=== PATIENT | female | born 1975 | race Caucasian/White ===

== ENCOUNTER 2025-01-18 | Day surgery (SDC) | payer OTHER, SELFPAY ==
--- NOTE | 2025-01-11 10:45 | PC.NURSE ---
Report to the Outpatient Waiting Room, entrance under the green pavilion located off [facility], at time __9:00 AM on date ___[id number]____. Planned Procedure Time: __11:00AM .? Time changes happen often and if your time is changed the preop area will call you the afternoon before. - You and your visitor will be asked to self-screen and do not enter if you have any COVID symptoms. Please call surgeon if you need to reschedule. - A mask is optional within the hospital at this time. Patients may have clear liquids (water, carbonated beverages, clear teas, apple juice) until 3 hours prior to surgery with a maximum of 20 ounces. - No food from midnight until time of surgery and no smoking, or chewing tobacco (or any form of nicotine). No chewing gum, candy or mints. - Take only the following medications with a SIP of water on the morning of surgery: EFFEXOR DO NOT STOP ANY OF YOUR OTHER PRESCRIPTION MEDICATIONS PRIOR TO SURGERY EXCEPT THE FOLLOWING N/A Hold all vitamins and supplements for 3 days per anesthesiologist. N/A Please no make-up, nail faroese, hairspray, perfume, deodorant, or body powder the day of surgery.? No jewelry (including any body piercings) or valuables the day of surgery, leave them at home.? Please take a shower or bath the night before, or the morning of, surgery with an antibacterial soap.? Wear comfortable, loose fitting clothing.? - Jewelry must be removed prior to entering the operating room.? Rings and piercings that are not removed may be cut off. - The hospital will not accept responsibility for valuables.? - Please leave all valuables, including medications, at home the day of surgery. If you are going home after surgery, a licensed delivery driver/supervisor must drive you home.? - NO public transportation without another adult if you receive anesthesia. - We recommend that an adult stay with you for 24 hours following discharge. - We also recommend that you do not drive, make important decision, drink alcoholic beverages, or take any drugs that were not prescribed by your health care provider for at least 24 hours after your discharge time. Follow any additional instructions given to you from your surgeon. Telephone instructions given to ___JIDEV (PATIENT) and asked if any additional questions and then verbalized understanding. Patient advised to call surgeon office or pre surgery nurse liaison [phone] if any additional questions.
[2025-01-11 10:50] VITALS: BMI 37.7
[2025-01-18] VITALS (7 sets, daily range): BP systolic 104–147; BP diastolic 60–90; PULSE 68–71; RESP 16–20; TEMP 36.3–36.7; O2SAT 92–97
--- OUTSIDE RECORDS SUMMARY | 2025-01-18 00:02 | XMS_ITS | Encounter Summary ---
Author Organization [facility] Address [address] [place] [address] Care Team Providers Care Commercial Horticulture Instructor Name Role Phone Juancarlos Bell MD Primary Care Provider [phone] Encounter Details Date Type Department Care Team (Latest Contact Info) Description 09/30/2005 [facility]patient [facility] Shanna Florez MD [address] [place] [phone] ABNL FINDINGS ON SCREEN (Primary Dx) Social History Tobacco Use Types Packs/Day Years Used Date Smoking Tobacco: Never Assessed Comments Unknown Sex and Gender Information Value Date Recorded Sex Assigned at Not on file Legal Sex Female 5:15 AM FAMILY MEDICINE CHAIR Gender Identity Not on file Sexual Orientation Not on file documented as of this encounter Plan of Treatment Not on file documented as of this encounter Visit Diagnoses Diagnosis Abnormal findings on screening- Primary documented in this encounter Care Teams Commercial Horticulture Instructor Relationship Specialty Start Date End Date Juancarlos Bell MD [address] [place] [address] PCP - General 08/12/15 documented as of this encounter
--- OUTSIDE RECORDS SUMMARY | 2025-01-18 00:02 | XMS_ITS | Encounter Summary ---
Author Organization [facility] Address [address] [place] [address] Care Team Providers Care Vacuum Cleaner Assembler Name Role Phone Juancarlos Bell MD Primary Care Provider [phone] Encounter Details Date Type Department Care Team (Late st Contact Info) Description 09/30/2005 Outpatient Historical [facility] Maternal and Ground Floor [address] [place] [phone] Maurizio Jacobs MD [address] [place] [address] Social History Tobacco Use Types Packs/Day Years Used Date Smoking Tobacco: Never Assessed Comments Unknown Sex and Gender Information Value Date Recorded Sex Assigned at Not on file Legal Sex Female 5:15 AM BOX ATTACHER Gender Identity Not on file Sexual Orientation Not on file documented as of this encounter Plan of Treatment Not on file documented as of this encounter Visit Diagnoses Not on filedocumented in this encounter Care Teams Vacuum Cleaner Assembler Relationship Specialty Start Date End Date Juancarlos Bell MD [address] [place] [phone] PCP - General 08/12/15 documented as of this encounter
--- OUTSIDE RECORDS SUMMARY | 2025-01-18 00:03 | XMS_ITS | Encounter Summary ---
Author Organization [employer] Address [address] [place] [address] Care Team Providers Care Curtain Inspector Name Role Phone Juancarlos Bell MD Primary Care Provider [phone] Encounter Details Date Type Department Care Team (Latest Contact Info) Description 02/25/2006 Inpatient Historical [facility] Adelina Patel MD NO ADDRESS ON FILE Shanna Florez MD [address] [place] [phone] Poor Growth, Affecting Management of Mother, Delivered (Primary Dx) Social History Tobacco Use Types Packs/Day Years Used Date Smoking Tobacco: Never Assessed Comments Unknown Sex and Gender Information Value Date Recorded Sex Assigned at Not on file Legal Sex Female 5:15 AM CHIEF MEDICAL PHYSICIST Gender Identity Not on file Sexual Orientation Not on file documented as of this encounter Plan of Treatment Not on file documented as of this encounter Procedures Procedure Name Priority Date/Time Associated Diagnosis Comments CBC WITH DIFFERENTIAL Routine 02/25/2006 1:29 PM CDT CBC WITH DIFFERENTIAL Routine 02/25/2006 1:29 PM CDT documented in this encounter Results * (ABNORMAL) CBC WITH DIFFERENTIAL (02/25/2006 1:29 PM CDT) NEUTROPHILS 74(H) 45 - 70 % INTERFAC E SYSTEM LYMPHOCYTES 19 16 - 45 % INTERFAC E SYSTEM MONOCYTES 7 3 - 13 % INTERFACE SYSTEM EOSINOPHILS 1 0 - 7 % INTERFAC E SYSTEM BASOPHILS 0 0 - 2 % INTERFACE SYSTEM NEUTROPHIL ABSOLUTE 8.52(H) 1.90 - 7.00 K/uL INTERFACE SYSTEM LYMPHOCYTE ABSOLUTE 2.16 0.70 - 4.50 K/uL INTERFACE SYSTEM MONOCYTE ABSOLUTE 0.78 0.10 - 1.30 K/uL INTERFACE SYSTEM EOSINOPHIL ABSOLUTE 0.10 0.00 - 0.70 K/uL INTERFACE SYSTEM BASOPHILS ABSOLUTE 0.03 0.00 - 0.20 K/uL INTERFACE SYSTEM 02/25/2006 1:29 PM CDT Shanna Florez MD HEMATOLOGY ORDERABLES Final Result Performing Organization Address City/[facility] Co de Phone Number INTERFACE SYSTEM Refer to clinic/hospital department * (ABNORMAL) CBC WITH DIFFERENTIAL (02/25/2006 1:29 PM CDT) WBC 11.6(H) 4.0 - 9.8 K/uL INTERFACE SYSTEM RBC 4.46 3.90 - 4.90 M/uL INTERFACE SYSTEM HEMOGLOBIN 13.7 11.8 - 14.8 g/dL INTERFACE SYSTEM HEMATOCRIT 39.8 35.5 - 44.0 % INTERFACE SYSTEM MCV 89.2 82.0 - 99.0 fL INTERFACE SYSTEM MCH 30.7 27.2 - 32.6 pg INTERFACE SYSTEM MCHC 34.4 31.5 - 35.5 % INTERFACE SYSTEM RDW 13.0 11.5 - 14.5 % INTERFACE SYSTEM RDW-STDEV 41.9 37.1 - 48.7 fL INTERFACE SYSTEM PLATELETS 179 140 - 350 K/uL INTERFACE SYSTEM MPV 12.3 9.3 - 12.4 fL INTERFACE SYSTEM 02/25/2006 1:29 PM CDT Shanna Florez MD HEMATOLOGY ORDERABLES Final Result Performing Organization Address City/[facility] Co de Phone Number INTERFACE SYSTEM Refer to clinic/hospital department documented in this encounter Visit Diagnoses Diagnosis Poor growth, affecting management of mother, delivered- Primary documented in this encounter Care Teams Curtain Inspector Relationship Specialty Start Date End Date Juancarlos Bell MD [address] [place] [phone] PCP - General 08/12/15 documented as of this encounter
--- OUTSIDE RECORDS SUMMARY | 2025-01-18 00:03 | XMS_ITS | Encounter Summary ---
Author Organization [facility] Address [address] [place] [address] Care Team Providers Care Finish Rolls Operator Name Role Phone Juancarlos Bell MD Primary Care Provider Encounter Details Date Type Department Care Team (Late st Contact Info) Description 10/29/2005 Outpatient Historical [facility] Maternal and Ground Floor [address] [place] [phone] Maurizio Jacobs MD [address] [facility] [address] [place] [address] Social History Tobacco Use Types Packs/Day Years Used Date Smoking Tobacco: Never Assessed Comments Unknown Sex and Gender Information Value Date Recorded Sex Assigned at Not on file Legal Sex Female 5:15 AM ASSISTANT GOLF PROFESSIONAL Gender Identity Not on file Sexual Orientation Not on file documented as of this encounter Plan of Treatment Not on file documented as of this encounter Visit Diagnoses Not on filedocumented in this encounter Care Teams Finish Rolls Operator Relationship Specialty Start Date End Date Juancarlos Bell MD [address] [place] [address] PCP - General 08/12/15 documented as of this encounter
--- OUTSIDE RECORDS SUMMARY | 2025-01-18 00:03 | XMS_ITS | Encounter Summary ---
Author Organization [facility] Address [address] [place] [address] Care Team Providers Care Senior Paralegal Name Role Phone Juancarlos Bell MD Primary Care Provider [phone] Encounter Details Date Type Department Care Team (Late st Contact Info) Description 01/18/2006 Outpatient Historical [facility] Maternal and Ground Floor S [facility] [address] [place] [phone] Luis Felipe Pena MD NO ADDRESS ON FILE Social History Tobacco Use Types Packs/Day Years Used Date Smoking Tobacco: Never Assessed Comments Unknown Sex and Gender Information Value Date Recorded Sex Assigned at Not on file Legal Sex Female 5:15 AM BOILER CLEANER Gender Identity Not on file Sexual Orientation Not on file documented as of this encounter Plan of Treatment Not on file documented as of this encounter Visit Diagnoses Not on filedocumented in this encounter Care Teams Senior Paralegal Relationship Specialty Start Date End Date Juancarlos Bell MD [address] [place] [phone] PCP - General 08/12/15 documented as of this encounter
--- OUTSIDE RECORDS SUMMARY | 2025-01-18 00:03 | XMS_ITS | Clinical Summary ---
Author Organization [facility] Address [address] [place] [address] Care Team Providers Care Sliver Cutter Name Role Phone Unavailable Primary Care Provider Unavailabl e Source Comments [facility],non-owned Affiliates and Associated Physician Practices is amultiple site organization consisting of ambulatory clinics and hospital sitesin [place], [place], [place] and [place]. This disclosure is being madepursuant to the Care Everywhere program and may not contain all information available regarding this patient. Last updated 18.[facility] [employer] Social History Tobacco Use Types Packs/Day Years Used Date Smoking Tobacco: Never Assessed Comments No Sex and Gender Information Value Date Recorded Sex Assigned at Not on file Legal Sex Female 1:21 PM SUPERVISOR PUMPING Gender Identity Not on file Sexual Orientation Not on file Plan of Treatment Health Maintenance Due Date Last Done Comments COLOGUARD (AGES 45-75) - COL ON CA SCREENING 1975 COLON MONITORING 1975 COLONOSCOPY - COLON CA SCREENING 1975 CT COLONOGRAPHY - COLON CA SCREENING 1975 Colorectal Cancer Screening 1975 FIT - COLON CA SCREENING 1975 FLEX SIG - COLON CA SCREENING 1975 LIPID TESTING 1975 MAMMOGRAM 1975 HIV SCREENING 1990 HEPATITIS C SCREENING 10/04/1993 DTAP/TDAP/TD VACCINES (1 - Tdap) 1994 HEPATITIS B VACCINE (1 of 3 - 19+ 3-dose series) 1994 COVID-19 VACCINE (1 - 2023-2 5 season) 2024 DEPRESSION SCREENING 08/22/2024 INFLUENZA VACCINE (Season Ended) 2025 ZOSTER VACCINE (1 of 2) 2025 HIB VACCINE Aged Out No longer eligi ble based on patient's age to complete this topic HPV VACCINE Aged Out No longer eligi ble based on patient's age to complete this topic MENINGOCOCCAL (Group B) VACC INE SHARED DECISION-MAKING Aged Out No longer eligibl e based on patient's age to complete this topic MENINGOCOCCAL GROUPS A/C/Y/W VACCINE Aged Out No longer eligible b ased on patient's age to complete this topic
--- OUTSIDE RECORDS SUMMARY | 2025-01-18 00:03 | XMS_ITS | Encounter Summary ---
Author Organization [facility] Address [address] [place] [address] Care Team Providers Care Pan Shover Name Role Phone Juancarlos Bell MD Primary Care Provider [phone] Encounter Details Date Type Department Care Team (Late st Contact Info) Description 11/26/2005 Outpatient Historical [facility] Maternal and Ground Floor [address] [place] [phone] Maruizio Jacobs MD [address] [facility] [address] [place] [address] Social History Tobacco Use Types Packs/Day Years Used Date Smoking Tobacco: Never Assessed Comments Unknown Sex and Gender Information Value Date Recorded Sex Assigned at Not on file Legal Sex Female 5:15 AM LOANS OFFICER Gender Identity Not on file Sexual Orientation Not on file documented as of this encounter Plan of Treatment Not on file documented as of this encounter Visit Diagnoses Not on filedocumented in this encounter Care Teams Pan Shover Relationship Specialty Start Date End Date Juancarlos Bell MD [address] [place] [phone] PCP - General 08/12/15 documented as of this encounter
--- OUTSIDE RECORDS SUMMARY | 2025-01-18 00:03 | XMS_ITS | Encounter Summary ---
Author Organization [facility] Address [address] [place] [address] Care Team Providers Care Trim Operator Name Role Phone Juancarlos Bell MD Primary Care Provider Encounter Details Date Type Department Care Team (Latest Contact Info) Description 02/05/2006 Outpatient Historical [facility] Shanna Florez MD [address] [place] [address] Twin , Antepartum (Primary Dx) Social History Tobacco Use Types Packs/Day Years Used Date Smoking Tobacco: Never Assessed Comments Unknown Sex and Gender Information Value Date Recorded Sex Assigned at Not on file Legal Sex Female 5:15 AM RESEARCH ASSOC Gender Identity Not on file Sexual Orientation Not on file documented as of this encounter Plan of Treatment Not on file documented as of this encounter Visit Diagnoses Diagnosis Twin , antepartum- Primary documented in this encounter Care Teams Trim Operator Relationship Specialty Start Date End Date Juancarlos Bell MD [address] [place] [phone] PCP - General 08/12/15 documented as of this encounter
--- OUTSIDE RECORDS SUMMARY | 2025-01-18 00:03 | XMS_ITS | Encounter Summary ---
Author Organization [facility] Address [address] [place] [address] Care Team Providers Care Commercial Loan Processor Name Role Phone Juancarlos Bell MD Primary Care Provider [phone] Encounter Details Date Type Department Care Team (Late st Contact Info) Description 02/25/[address] [facility] Maternal and Ground Floor S [facility] [address] [place] [address] Essence Nunez MD [address] [place] [phone] Social History Tobacco Use Types Packs/Day Years Used Date Smoking Tobacco: Never Assessed Comments Unknown Sex and Gender Information Value Date Recorded Sex Assigned at Not on file Legal Sex Female 5:15 AM SLIDING JOINT MAKER Gender Identity Not on file Sexual Orientation Not on file documented as of this encounter Plan of Treatment Not on file documented as of this encounter Visit Diagnoses Not on filedocumented in this encounter Care Teams Commercial Loan Processor Relationship Specialty Start Date End Date Juancarlos Bell MD [address] [place] [phone] PCP - General 08/12/15 documented as of this encounter
--- OUTSIDE RECORDS SUMMARY | 2025-01-18 00:03 | XMS_ITS | Referral Summary ---
Author Organization [facility] Address [address] [place] [address] Care Team Providers Care Board Mixer Tender Name Role Phone Michelle AlexandraRex BAIRD Primary Care Provider Allergies No known active allergies Medications citalopram (CeleXA) 40 mg tablet 11/21/2018 Active Active Problems Problem Noted Date Diagnosed Date Achalasia of esophagus 07/14/2010 Social History Tobacco Use Types Packs/Day Years Used Date Smoking Tobacco: Never Alcohol Use Standard Drinks/Week Comments Yes 0 (1 standard drink = 0.6 oz pur e alcohol) AUDIT-C Answer Date Recorded Frequency of Alcohol Consumption Monthly or less 11/22/2018 Average Number of Drinks 1 or 2 019 Frequency of Binge Drinking Never 10/2018 Personal Safety Answer Date Recorded Getting School Help Needed Not on file 11/04 Comments No Sex and Gender Information Value Date Recorded Sex Assigned at Not on file Legal Sex Female 1:03 PM SOFTWARE DEVELOPMENT PROJECT MANAGER Gender Identity Not on file Sexual Orientation Not on file Last Filed Vital Signs Vital Sign Reading Time Taken Comments Blood Pressure 122/80 01/29/2020 9:52 AM CDT Pulse 60 09/27/2019 6:11 AM SOFTWARE DEVELOPMENT PROJECT MANAGER Temperature 36.2 C (97.1 F) 01/29/2020 9:52 AM CDT Respiratory Rate - - Oxygen Saturation 99% 09/27/2019 6:11 AM SOFTWARE DEVELOPMENT PROJECT MANAGER Inhaled Oxygen Concentration - - Weight 95.3 kg (210 lb) 01/29/2020 9:52 AM CDT Height 160 cm (5' 3) 01/29/2020 9:52 AM CDT Body Mass Index 37.2 01/29/2020 9:52 AM CDT Plan of Treatment Upcoming Encounters Date Type Department Care Team (Latest Contact Info) Description 02/18/2025 8:30 AM CDT Hospital Encounter [facility] [place] [address] [place] [address] Kaushik Prescott IV, MD [address] [place] [address] 02/18/2025 8:30 AM CDT - 02/18/2025 9:20 AM CDT Surgery [facility] [place] [address] [place] [address] Kaushik Prescott IV, MD [address] [place] [phone] EXCISION CYST MIDBACK Scheduled Procedures Name Priority Associated Diagnoses Date/Ti me EXCISION CYST/LESION/MASS - TRUNK CYST MID BACK 02/18/2025 8:30 AM CDT Insurance [employer] ([employer] OOS BLUE TRADITIONAL OOS Care Teams Board Mixer Tender Relationship Specialty Start Date End Date Michelle Alexandra DO [address] [address] PCP - General 11/14/18
--- OUTSIDE RECORDS SUMMARY | 2025-01-18 00:03 | XMS_ITS | Encounter Summary ---
Author Organization [facility] Address [address] [place] [address] Care Team Providers Care After School Driver Name Role Phone Juancarlos Bell MD Primary Care Provider [phone] Encounter Details Date Type Department Care Team (Latest Contact Info) Description 12/03/2005 Outpatient Historical [facility] Shanna Florez MD [address] [place] [phone] Other Specified Screening (Primary Dx) Social History Tobacco Use Types Packs/Day Years Used Date Smoking Tobacco: Never Assessed Comments Unknown Sex and Gender Information Value Date Recorded Sex Assigned at Not on file Legal Sex Female 5:15 AM CHIEF ENGINEERING DIVISION Gender Identity Not on file Sexual Orientation Not on file documented as of this encounter Plan of Treatment Not on file documented as of this encounter Visit Diagnoses Diagnosis Other screening- Primary Other specified screening documented in this encounter Care Teams After School Driver Relationship Specialty Start Date End Date Juancarlos Bell MD [address] [place] [address] PCP - General 08/12/15 documented as of this encounter
--- OUTSIDE RECORDS SUMMARY | 2025-01-18 00:03 | XMS_ITS | Clinical Summary ---
Author Organization [facility] Address [address] [place] [address] Care Team Providers Care Airline Station Agent Name Role Phone Michelle Alexandra Primary Care Provider Allergies No known active allergies Medications citalopram (CeleXA) 40 mg tablet 11/21/2018 Active Active Problems Problem Noted Date Diagnosed Date Achalasia of esophagus 07/14/2010 Surgical History Surgery Date Site/Laterality Comments REDUCTION MAMMAPLASTY GASTRIC FUNDOPLICATION 08/22/2009 - 08/21/2010 SECTION SECTION, CLASSIC HYSTEROSCOPY W/ ENDOMETRIAL ABLATION 09/27/2019 [facility] [address] ESTELA [address]ATION. Dr Cortes US ABDOMEN COMPLETE W LIVER DOPPLER (C) 11/14/2018 Right Medical History Medical History Date Comments Depression Family History Medical History Relation Name Comments Glaucoma Other Skin cancer Other Relation Name Status Comments Other Social History Tobacco Use Types Packs/Day Years [...] on file Legal Sex Female 1:03 PM ART CONSULTANT Gender Identity Not on file Sexual Orientation Not on file Obstetrics History Para Term AB IAB SAB Ectopic Multiple Livin g Live Births 3 3 Date Outcome GA Total Labor Labor/2nd/3rd Weight Sex Type Anes PTL Gala A1 A5 Name Clin Para Para Para Comments (sets of twins) Last Filed Vital Signs Vital Sign Reading Time Taken Comments Blood Pressure 122/80 01/29/2020 9:52 AM CDT Pulse 60 09/27/2019 6:11 AM ART CONSULTANT Temperature 36.2 C (97.1 F) 01/29/2020 9:52 AM CDT Respiratory Rate - - Oxygen Saturation 99% 09/27/2019 6:11 AM ART CONSULTANT Inhaled Oxygen Concentration - - Weight 95.3 kg (210 lb) 01/29/2020 9:52 AM CDT Height 160 cm (5' 3) 01/29/2020 9:52 AM CDT Body Mass Index 37.2 01/29/2020 9:52 AM CDT Plan of Treatment Upcoming Encounters Date Type Department Care Team (Latest Contact Info) Description 02/18/2025 8:30 AM CDT Hospital Encounter [facility] [place] [address] [place] [address] Kaushik Prescott IV, MD [address] [place] [phone] 02/18/2025 8:30 AM CDT - 02/18/2025 9:20 AM CDT Surgery [facility] [place] [address] [place] [address] Kaushik Prescott IV, MD [address] [place] [phone] EXCISION CYST MIDBACK Scheduled Procedures Name Priority Associated Diagnoses Date/Ti me EXCISION CYST/LESION/MASS - TRUNK CYST MID BACK 02/18/2025 8:30 AM CDT Insurance [employer] OOS BLUE TRADITIONAL OOS Care Teams Airline Station Agent Relationship Specialty Start Date End Date Michelle Alexandra DO [address] [address] PCP - General 11/14/18
--- OUTSIDE RECORDS SUMMARY | 2025-01-18 00:03 | XMS_ITS | Encounter Summary ---
Author Organization [facility] Address [address] [place] [address] Care Team Providers Care Shingle Carrier Name Role Phone Juancarlos Bell MD Primary Care Provider [phone] Encounter Details Date Type Department Care Team (Late st Contact Info) Description 12/27/2005 Outpatient Historical [facility] Maternal and Ground Floor [address] [place] [phone] Maurizio Jacobs MD [address] [facility] [address] [place] [address] Social History Tobacco Use Types Packs/Day Years Used Date Smoking Tobacco: Never Assessed Comments Unknown Sex and Gender Information Value Date Recorded Sex Assigned at Not on file Legal Sex Female 5:15 AM WOOD LATHER Gender Identity Not on file Sexual Orientation Not on file documented as of this encounter Plan of Treatment Not on file documented as of this encounter Visit Diagnoses Not on filedocumented in this encounter Care Teams Shingle Carrier Relationship Specialty Start Date End Date Juancarlos Bell MD [address] [place] [phone] PCP - General 08/12/15 documented as of this encounter
--- OUTSIDE RECORDS SUMMARY | 2025-01-18 00:03 | XMS_ITS | Encounter Summary ---
[facility] Organization [facility] Address [address] [place] [address] Care Team Providers Care Frame Stylist Name Role Phone Juancarlos Bell MD Primary Care Provider [phone] Encounter Details Date Type Department Care Team (Late st Contact Info) Description 03/09/2006 Outpatient Historical [facility] Shanna Florez MD [address] [place] [phone] Social History Tobacco Use Types Packs/Day Years Used Date Smoking Tobacco: Never Assessed Comments Unknown Sex and Gender Information Value Date Recorded Sex Assigned at Not on file Legal Sex Female 5:15 AM PIG MACHINE CRANE OPERATOR Gender Identity Not on file Sexual Orientation Not on file documented as of this encounter Plan of Treatment Not on file documented as of this encounter Visit Diagnoses Not on filedocumented in this encounter Care Teams Frame Stylist Relationship Specialty Start Date End Date Juancarlos Bell MD [address] [place] [phone] PCP - General 08/12/15 documented as of this encounter
--- OUTSIDE RECORDS SUMMARY | 2025-01-18 00:03 | XMS_ITS | Encounter Summary ---
Author Organization [facility] Address [address] [place] [address] Care Team Providers Care Meter Mechanic Name Role Phone Juancarlos Bell MD Primary Care Provider [phone] Encounter Details Date Type Department Care Team (Latest Contact Info) Description 01/04/2006 Outpatient Historical [facility] Shanna Florez MD [address] [place] [phone] Other Specified Complication, Antepartum (Primary Dx) Social History Tobacco Use Types Packs/Day Years Used Date Smoking Tobacco: Never Assessed Comments Unknown Sex and Gender Information Value Date Recorded Sex Assigned at Not on file Legal 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
--- OUTSIDE RECORDS SUMMARY | 2025-01-18 00:03 | XMS_ITS | Clinical Summary ---
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 Gender Identity Not on file Sexual Orientation Not on file Plan of Treatment Health Maintenance Due Date Last Done Comments DTAP/TDAP/TD VACCINES (1 - Tdap) 1994 HEPATITIS B VACCINES (1 of 3 - 19+ 3-dose series) 09/22 HPV/Cotest (21-29) 1996 CERVICAL CANCER SCREENING 2005 HPV/Cotest (30-65) 2005 PAP SMEAR 2005 BREAST CANCER SCREENING 2015 12/01/2010 COLORECTAL SCREENING 2020 Colorectal Cancer Screening 2020 FIT-DNA Q 3 years 2020 FIT/FOBT Q 1 year 2020 Flex Sig/CT Colonography Q 5 years 2020 INFLUENZA VACCINE (#1) 2024 Procedures Procedure Name Priority Date/Time Associated Diagnosis Comments MAMMO SCREEN BILAT W OR WO CAD Routine 12/01/2010 11:27 AM CDT Other screening mammogram from Last 3 Months or Most Recently Relevant to Health Maintenance Results * MAMMO DIGITAL SCREEN BILAT (12/01/2010 11:27 AM CDT) Anatomical Region Laterality Modality Breast Bilateral Mammography Impressions 12/02/2010 6:54 AM CDT : No evidence of malignancy. OVERALL ASSESSMENT: BIRADS category 1 - Negative Narrative 12/02/2010 6:54 AM CDT BILATERAL SCREENING DIGITAL MAMMOGRAMS WITH COMPUTER ASSISTED DIAGNOSIS Date of exam: 12/01/10 Clinical history: Screening baseline mammogram A screening baseline digital mammogram using CAD technology demonstrates a heterogeneous pattern of moderately dense fibroglandular tissue. There is no evidence of malignant breast mass or radiographic signs of malignancy in either breast. Procedure Note Wolf Casas MD - 12/02/2010 BILATERAL SCREENING DIGITAL MAMMOGRAMS WITH COMPUTER ASSISTED DIAGNOSIS Date of exam: 12/01/10 Clinical history: Screening baseline mammogram A screening baseline digital mammogram using CAD technology demonstrates aheterogeneous pattern of moderately dense fibroglandular tissue. There isno evidence of malignant breast mass or radiographic signs of malignancyin either breast. IMPRESSION: No evidence of malignancy. OVERALL ASSESSMENT: BIRADS category 1 - Negative Shanna Florez MD MAMMO ORDERABLES Final Resul t from Last 3 Months or Most Recently Relevant to Health Maintenance Insurance BS BLUE ACCESS/TRUE BLUE PPO Care Teams Banana Room Cutter Relationship Specialty Start Date End Date Juancarlos Bell MD [address] [place] [phone] PCP - General 08/12/15
--- OUTSIDE RECORDS SUMMARY | 2025-01-18 00:03 | XMS_ITS | Encounter Summary ---
Author Organization [facility] Address 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
--- OUTSIDE RECORDS SUMMARY | 2025-01-18 00:03 | XMS_ITS | Encounter Summary ---
Author Organization [facility] Address [address] [place] [address] Care Team Providers Care Custody Officer Name Role Phone Juancarlos Bell MD Primary Care Provider [phone] Encounter Details Date Type Department Care Team (Late st Contact Info) Description 02/07/2006 Outpatient Historical [facility] Maternal and [address] [place] [phone] Maurizio Jacobs MD [address] [facility] [address] [place] [phone] Social History Tobacco Use Types Packs/Day Years Used Date Smoking Tobacco: Never Assessed Comments Unknown Sex and Gender Information Value Date Recorded Sex Assigned at Not on file 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
--- OUTSIDE RECORDS SUMMARY | 2025-01-18 00:03 | XMS_ITS | Encounter Summary ---
Author Organization [facility] Address [address] [place] [address] Care Team Providers Care Upstream Biomanufacturing Technician Name Role Phone Juancarlos Bell MD Primary Care Provider [phone] Encounter Details Date Type Department Care Team (Late st Contact Info) Description 02/25/2006 Outpatient Historical [facility] Maternal and Ground Floor [facility] [address] [place] [phone] Nile Espinosa MD [address] [place] [phone] Social History Tobacco Use Types Packs/Day Years Used Date Smoking Tobacco: Never Assessed Comments Unknown Sex and Gender Information Value Date Recorded Sex Assigned at Not on file Legal 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
--- NOTE | 2025-01-18 07:29 | WPDHPUPDATE1 ---
History and Physical Update Update Date/Time: 01/18/25 07:29 History and Physical has been reviewed, including an updated exam of the patient. There are NO changes in the patient's condition. Risks, benefits, and alternatives have been discussed and questions answered. Patient agrees to proceed with procedure.
--- NOTE | 2025-01-18 09:51 | P.PNAN_ITS ---
Anes - Initial Pre Proc Eval Procedure: Operation Date: 01/18/25 11:00 Proposed Procedures p Urethral Sling - Jozef Tinajero MD Date/Time: 01/18/25 09:51 Surgeon: Jozef Tinajero MD Pre Op Diagnosis: stress incontinence Patient Data Age: 49 Gender: F Height: 1.6 m Weight: 96.62 kg Allergies Allergy/AdvReac Type Severity Reaction Status Date / Time No Known Allergies Allergy Verified 01/11/25 10:52 Home Medications ?Medication ?Instructions ?Recorded ?Confirmed ?Type atorvastatin 10 mg tablet 10 mg PO QPM 01/11/25 01/11/25 History venlafaxine 150 mg 150 mg PO QAM 01/11/25 01/11/25 History capsule,extended release 24 hr Patient hx anesthesia problems: none Family hx anesthesia problems: none Results Review: All pre-operative results and documents have been reviewed as part of the pre- operative evaluation. PMFSH Past Medical History Medical History (Updated 01/18/25 @ 08:16 by Ian Dial DO) Hyperlipidemia Surgical History Surgical History (Updated 01/18/25 @ 08:16 by Ian Dial DO) History of tubal ligation History of Kimberly fundoplication Social History Social History Smoking status: Never smoker Second hand tobacco smoke exposure: No Substance use: never Substance use type: does not use Living arrangements: with family Spiritual care concerns: No Anes - Eval Final PreProcedure Day of Procedure 01/18/25 09:51 Patient weight: obese Heart: regular rate and rhythm Lungs: clear to auscultation Airway: Mallampati scale class II Neurological: alert and oriented Last oral intake: >/= 8 hours ASA classification: II Emergent: no Anesthetic plan: proceed Anesthesia type and monitoring: general GIVS and standard monitoring Results Review: All pre-operative results and documents have been reviewed as part of the pre- operative evaluation. Informed Consent: The patient's anesthetic plan and its attendant risks and benefits were discussed with the patient/family/POA. Questions were solicited and answers provided to the satisfaction of the patient/family/POA.
[2025-01-18] MEDS: LACTATED RINGERS 1,000 ML 30 ML IV CONT (10:10)
--- NOTE | 2025-01-18 10:27 | P.HP_ITS ---
H&P: HPI History of Present Illness Date/Time: 01/18/25 10:27 Chief Complaint: ОЛЕГ Narrative: Note:?Nohelia Luna is a 49-year-old female who presents for bladder troubles. She is seen at the request of her primary care provider. ?She has had three pregnancies, including a set of twins, and has five children in total. The youngest is now 13 years old. She has been experiencing issues with stress incontinence, particularly when laughing, coughing, sneezing, jumping, or lifting. These symptoms have progressively worsened. She denies any urgency, difficulty voiding, or blood in the urine. There have been no infections. She has previously tried pelvic floor therapy for three months, which provided minimal improvement. A bladder scan was completed to evaluate for urinary retention as possible cause for voiding symptoms. Review of Systems Review of Systems: All systems reviewed & are unremarkable except as noted in HPI and below PMFSH Past Medical History Medical History Hyperlipidemia Surgical History Surgical History History of tubal ligation History of Kimberly fundoplication Social History Social History Smoking status: Never smoker Second hand tobacco smoke exposure: No Substance use: never Substance use type: does not use Living arrangements: with family Spiritual care concerns: No Meds Home Medications and Allergies Home Medications ?Medication ?Instructions ?Recorded ?Confirmed ?Type atorvastatin 10 mg tablet 10 mg PO QPM 01/11/25 01/18/25 History venlafaxine 150 mg 150 mg PO QAM 01/11/25 01/18/25 History capsule,extended release 24 hr Allergies Allergy/AdvReac Type Severity Reaction Status Date / Time No Known Allergies Allergy Verified 01/18/25 10:06 Exam Narrative: The physical exam findings are as follows: Note:? -General appearance No acute distress -Building nutrition Well-developed, well -nourished -Integumentary -Overall skin examination reveals no sig nificant rashes -Head and neck -Head Normocephalic atraumatic -Trachea Midline -Goiter None -Eye Extraocular movements intact -Chest and lung -Quiet and even respiratory effort witho ut the use of accessory muscles of respiration, no cough or grunting -Breast -Breast exam not indicated -Cardiovascular -Lower extremity edema: ?trace -Lower extremity varicosities: ?none -Abdomen -Inspection Abdomen flat -Incisions none -Palpation soft, non-rigid, no guarding -Female genitourinary -External genitalia -Vulvar hair distribution hair details -Introitus No discharge -Urethral characteristics Orthotopic, no n-tender, no diverticulum, stress incontinence Absent, mobility hypermobility -Speculum and bimanual -Cystocele minimal -Vaginal [place] supported -Rectocele minimal -Vaginal mucosa healthy -Rectal -Normal anus and perineum, SHAYNA not indic ated -Neurologic -General Alert and oriented x3. Active m ovement of all 4 extremities. -Pelvic floor muscle tone normal -Pelvic floor muscle tenderness absent -Lymphatic No visible lymphadenopathy Assessment and Plan Assessment and plan (1) ОЛЕГ (stress urinary incontinence, female): Code(s): N39.3 - Stress incontinence (female) (male) Status: Acute Assessment and Plan: Note:?ASSESSMENT: - Stress urinary incontinence - Urethral hypermobility PLAN: - We discussed the treatment options for stress urinary incontinence, including pelvic floor muscle rehabilitation, transurethral bulking agents, and mid- urethral sling procedures. She is most interested in the latter. - We discussed the alternatives, benefits, and risks. We discussed specifically the risks of bleeding, infection, failure to correct incontinence, damage to the urinary tract, vaginal mesh extrusion, urinary tract mesh erosion, obstructive voiding requiring a secondary procedure, de nayan or worsening irritative voiding symptoms, post-operative hip and leg pain, and the risk of anesthesia. We also discussed that treatment of stress incontinence is unlikely to improve overactive bladder symptoms if present. She was also counseled on post-operative activity restrictions. She wishes to proceed. - A bladder scan was performed to assess for incomplete bladder emptying as a potential cause of voiding symptoms or urinary tract infection.
[2025-01-18 10:35] LABS: BEDSIDEPREGUCG Negative (Negative)
[2025-01-18] MEDS: ceFAZolin 2 GM/D5W 50 ML 2 GM/50 ML BAG IVPB (10:58)
[2025-01-18] MEDS: BUPIVACAINE/EPINEPHRINE 0.5% 50 ML VIAL 30 ML INFILTRATE (11:20)
--- NOTE | 2025-01-18 11:33 | W.PM.PROC2 ---
Procedure Note - Detailed Date of Procedure 01/18/25 Pre-op Diagnosis stress incontinence Post-op Diagnosis Same Procedure Performed mid urethral sling cystoscopy Surgeon Jozef Tinajeor MD Anesthesia General Indications This is a female with confirm stress urinary incontinence. She desires surgical correction. She understands the risks of bleeding, infection, injury to the urinary tract, vaginal mesh extrusion, urinary tract mesh erosion, obstructive voiding requiring a secondary procedure, hip and leg pain, dyspareunia, inability to improve overactive bladder symptoms. She agrees to proceed. Description of Procedure She was correctly identified. Informed consent obtained. She was brought the operating room. She was given appropriate anesthesia. She was given appropriate perioperative antibiotics. A time-out performed. I marked out the site of the inner thigh incisions. I anesthetized the skin and made those incisions. I anesthetized the anterior vaginal wall over the mid urethra. I made a 1 cm incision. I dissected out laterally taking great care not to injure the refilled vaginal wall. I passed the helical trocars. First on the left. Then on the right. I did this from the thigh incision towards the vaginal incision. The sling was connected to the trocars and brought out through the thigh incision. I tensioned the sling appropriately. I cut and the plastic sheaths. I then closed the incision with 2 0 Vicryl. On cystoscopy there is no tumors or surgical artifact. There was no surgical artifact in the urethra. I cut the excess sling material. Close incisions with glue. She was awakened and transferred to the PACU in stable condition. Implants Urethral sling Estimated Blood Loss 20 Drains No Packing No Pathology None sent Complications No immediate complications Condition Stable Disposition PACU
== END 2025-01-18 13:05 | disposition home or self-care (01) ==
PROVIDERS: PCP Family Medicine; Visit Provider Urology
PROC: (CPT 57288; principal; 2025-01-18 11:00)
DX: N39.3 Stress incontinence (female) (male) (principal); E78.5 Hyperlipidemia, unspecified; E66.9 Obesity, unspecified; Z68.41 Body mass index [BMI] 40.0-44.9, adult; Z98.890 Other specified postprocedural states; Z98.51 Tubal ligation status
CPT/HCPCS: 57288; C1771; J0690; J1100; J2003; J2250; J2405; J2704; J3010; J7030; J7120